=== PATIENT | female | born 1990 | race African-American/Black ===

== ENCOUNTER 2018-05-29 20:18 | Emergency (ER) | payer OTHER ==
[~2018-05-29] VITALS: Ht 160 cm; Wt 54.4 kg
[2018-05-29] MEDS ORDERED: TESSALON PERLE100 MG PO (21:11)
[2018-05-29 21:14] VITALS: BP 109/76
== END 2018-05-29 21:15 | disposition home or self-care (01) ==
LOC: ER 20:18
DX: J04.0 Acute laryngitis (principal); B34.9 Viral infection, unspecified

== ENCOUNTER 2019-05-30 09:22 | Emergency (ER) | payer OTHER ==
[~2019-05-30] VITALS: Ht 157.5 cm; Wt 56.7 kg
[~2019-05-30 09:22] MED LIST: TESSALON PERLE100 MG PO
[2019-05-30] MEDS ORDERED: GUAIFEN-CODEINE10 ML PO (10:20)
[2019-05-30 10:41] VITALS: BP 97/59
== END 2019-05-30 10:41 | disposition home or self-care (01) ==
LOC: ER 09:22
DX: J06.9 Acute upper respiratory infection, unspecified (principal); L02.31 Cutaneous abscess of buttock

== ENCOUNTER 2019-06-11 07:30 | Emergency (ER) | payer OTHER ==
[~2019-06-11] VITALS: Ht 157.5 cm; Wt 56.7 kg
[~2019-06-11 07:30] MED LIST changes: +GUAIFEN-CODEINE10 ML PO
[2019-06-11] MEDS ORDERED: NOHOMEMEDICATIONS (08:26)
[2019-06-11 08:31] LABS: URINE BILIRUBIN NEGATIVE (Negative); URINE BLOOD 3+ (Negative); URINE CLARITY CLOUDY; URINE COLOR YELLOW; URINE GLUCOSE-RANDOM* NEGATIVE (Negative); URINE KETONES NEGATIVE (Negative); URINE LEUKOCYTES-REFLEX 2+ (Negative); URINE NITRITE-REFLEX NEGATIVE (Negative); URINE PROTEIN (DIPSTICK) 2+ (Negative); URINE SPECIFIC GRAVITY 1.025 (1.005-1.035); URINE UROBILINOGEN 0.2 E.U./dl (0.2-1.0)
[2019-06-11 08:41] LABS: CASTS None Seen /LPF (None Seen); CRYSTALS None Seen /LPF (None Seen); SQUAMOUS >10 Many /LPF (0-3); URINE RBC >20 Many /HPF (0-2)
[2019-06-11 08:43] LABS: URINE WBC-REFLEX >25 Many /HPF (0-5)
[2019-06-11] MEDS ORDERED: ZOFRAN ODT4 MG PO (08:51)
[2019-06-11] MEDS ORDERED: KEFLEX500 M1 PO (08:51)
[2019-06-11 09:02] VITALS: BP 99/62
== END 2019-06-11 09:03 | disposition home or self-care (01) ==
LOC: ER 07:30
PROVIDERS: Emergency Medicine
DX: N39.0 Urinary tract infection, site not specified (principal)

== ENCOUNTER 2019-09-24 22:43 | Emergency (ER) | payer OTHER ==
[~2019-09-24] VITALS: Ht 160 cm; Wt 54.4 kg
[~2019-09-24 22:43] MED LIST changes: +KEFLEX500 M1 PO; +NOHOMEMEDICATIONS; +ZOFRAN ODT4 MG PO
[2019-09-24 22:49] VITALS: BP 97/63
[2019-09-24] MEDS ORDERED: ERYTHROMYCIN E3.5 G2 OPHTHALMIC (23:10)
== END 2019-09-24 23:35 | disposition home or self-care (01) ==
LOC: ER 22:43
DX: H15.001 Unspecified scleritis, right eye (principal); H15.101 Unspecified episcleritis, right eye; H10.9 Unspecified conjunctivitis

== ENCOUNTER 2019-10-27 12:40 | Emergency (ER) | payer OTHER ==
[~2019-10-27] VITALS: Ht 160 cm; Wt 49.9 kg
[~2019-10-27 12:40] MED LIST changes: +ERYTHROMYCIN E3.5 G2 OPHTHALMIC
[2019-10-27 13:15] LABS: URINE BILIRUBIN NEGATIVE (Negative); URINE BLOOD 3+ (Negative); URINE GLUCOSE-RANDOM* NEGATIVE (Negative); URINE KETONES TRACE (Negative); URINE LEUKOCYTES-REFLEX NEGATIVE (Negative); URINE NITRITE-REFLEX NEGATIVE (Negative); URINE PROTEIN (DIPSTICK) 1+ (Negative); URINE SPECIFIC GRAVITY >= 1.030 (1.005-1.035); URINE UROBILINOGEN 0.2 E.U./dl (0.2-1.0)
[2019-10-27 13:16] LABS: URINE CLARITY CLOUDY; URINE COLOR RED
[2019-10-27 13:21] LABS: CASTS None Seen /LPF (None Seen); SQUAMOUS 0-3 Few /LPF (0-3)
[2019-10-27 13:22] LABS: BACTERIA-REFLEX None Seen /HPF (None Seen); CRYSTALS None Seen /LPF (None Seen); URINE RBC >20 Many /HPF (0-2)
[2019-10-27 13:25] LABS: URINE WBC-REFLEX 6-15 Few /HPF (0-5)
[2019-10-27] MEDS ORDERED: PRENATAL PO (13:34)
[2019-10-27 13:35] LABS: ABSOLUTE NEUTROPHILS 4.5 thou/uL (1.4-8.2); BASOPHILS 0.6 % (0.0-2.0); EOSINOPHILS 2.3 % (0.0-3.0); HEMATOCRIT 38.7 % (37.0-47.0); HEMOGLOBIN 12.7 gm/dL (12.0-15.0); LYMPHOCYTES 18.4 % (24.0-44.0); MCH 26.9 pg (26.0-34.0); MCHC 32.9 g/dL (28.0-37.0); MCV 81.7 fL (80.0-100.0); MONOCYTES 11.1 % (1.0-8.0); PLATELET COUNT 245 thou/uL (150-400); POLYS 67.6 % (36.0-66.0); RBC 4.74 mil/uL (4.20-5.00); RDW 15.2 % (10.5-14.5); WBC 6.7 thou/uL (4.0-11.0)
[2019-10-27 13:42] LABS: CALCIUM 8.7 mg/dL (8.5-10.1); CREATININE 0.8 mg/dL (0.6-1.0); POTASSIUM 3.7 mmol/L (3.5-5.1)
[2019-10-27 13:49] LABS: TOTAL BILIRUBIN 0.5 mg/dL (0.2-1.0); TOTAL PROTEIN 7.5 g/dL (6.4-8.2)
[2019-10-27] MEDS ORDERED: MACROBID 100 M100 MG PO (13:57)
[2019-10-27] MEDS ORDERED: TORADOL 10 MG T10 MG PO (13:57)
[2019-10-27] MEDS ORDERED: ONDANSETRON HCL4 M2 PO (13:59)
[2019-10-27 14:20] VITALS: BP 102/67
== END 2019-10-27 15:04 | disposition home or self-care (01) ==
LOC: ER 12:40
PROVIDERS: Physician Assistant
DX: N39.0 Urinary tract infection, site not specified (principal); N94.6 Dysmenorrhea, unspecified; Z79.899 Other long term (current) drug therapy

== ENCOUNTER 2020-03-29 07:55 | Emergency (ER) | payer OTHER ==
[~2020-03-29] VITALS: Ht 160 cm; Wt 55.3 kg
[~2020-03-29 07:55] MED LIST changes: +MACROBID 100 M100 MG PO; +ONDANSETRON HCL4 M2 PO; +PRENATAL PO; +TORADOL 10 MG T10 MG PO
[2020-03-29 07:56] VITALS: BP 99/58
[2020-03-29 08:17] LABS: URINE BILIRUBIN NEGATIVE (Negative); URINE BLOOD 3+ (Negative); URINE COLOR YELLOW; URINE GLUCOSE-RANDOM* NEGATIVE (Negative); URINE KETONES NEGATIVE (Negative); URINE LEUKOCYTES-REFLEX NEGATIVE (Negative); URINE NITRITE-REFLEX NEGATIVE (Negative); URINE PROTEIN (DIPSTICK) 1+ (Negative); URINE UROBILINOGEN 0.2 E.U./dl (0.2-1.0)
[2020-03-29 08:19] LABS: URINE CLARITY CLOUDY
[2020-03-29 08:23] LABS: BACTERIA-REFLEX >30 Many /HPF (None Seen); SQUAMOUS >10 Many /LPF (0-3); URINE WBC-REFLEX 0-5 Rare /HPF (0-5)
[2020-03-29 08:24] LABS: CASTS None Seen /LPF (None Seen); CRYSTALS None Seen /LPF (None Seen)
[2020-03-29 08:44] LABS: ABSOLUTE NEUTROPHILS 4.2 thou/uL (1.4-8.2); BASOPHILS 0.7 % (0.0-2.0); EOSINOPHILS 4.3 % (0.0-3.0); HEMOGLOBIN 13.1 gm/dL (12.0-15.0); LYMPHOCYTES 25.1 % (24.0-44.0); MCH 26.9 pg (26.0-34.0); MCHC 32.6 g/dL (28.0-37.0); MCV 82.3 fL (80.0-100.0); MONOCYTES 9.5 % (1.0-8.0); PLATELET COUNT 279 thou/uL (150-400); POLYS 60.4 % (36.0-66.0); RBC 4.86 mil/uL (4.20-5.00); RDW 15.7 % (10.5-14.5)
[2020-03-29 08:50] LABS: CREATININE 0.7 mg/dL (0.6-1.0); POTASSIUM 3.4 mmol/L (3.5-5.1)
[2020-03-29 08:57] LABS: TOTAL BILIRUBIN 0.6 mg/dL (0.2-1.0); TOTAL PROTEIN 7.7 g/dL (6.4-8.2)
[2020-03-29] MEDS ORDERED: MACROBID 100 M100 MG PO (10:03)
== END 2020-03-29 10:12 | disposition home or self-care (01) ==
LOC: ER 07:55
PROVIDERS: Emergency Medicine
DX: O20.8 Other hemorrhage in early pregnancy (principal); Z79.899 Other long term (current) drug therapy; Z3A.01 Less than 8 weeks gestation of pregnancy

== ENCOUNTER 2020-03-31 22:33 | Emergency (ER) | payer OTHER ==
[~2020-03-31] VITALS: Ht 160 cm; Wt 54.4 kg
[2020-03-31 23:07] LABS: HEMATOCRIT 35.7 % (37.0-47.0); HEMOGLOBIN 12.1 gm/dL (12.0-15.0); MCH 27.6 pg (26.0-34.0); MCHC 33.8 g/dL (28.0-37.0); MCV 81.6 fL (80.0-100.0); RBC 4.37 mil/uL (4.20-5.00); RDW 15.3 % (10.5-14.5); WBC 9.3 thou/uL (4.0-11.0)
[2020-04-01] MEDS ORDERED: APAP W/CODEINE1 TA2 PO (00:18)
[2020-04-01 00:43] VITALS: BP 107/65
== END 2020-04-01 00:56 | disposition home or self-care (01) ==
LOC: ER 22:33
PROVIDERS: Emergency Medicine
DX: O03.4 Incomplete spontaneous abortion without complication (principal); Z79.899 Other long term (current) drug therapy; Z3A.01 Less than 8 weeks gestation of pregnancy

== ENCOUNTER → 2020-04-01 | Outpatient (CLI) | payer OTHER ==
[~2020-04-01] MED LIST changes: +APAP W/CODEINE1 TA2 PO
== END ==
LOC: LABMALL 17:46
PROVIDERS: ATTEND Obstetrics & Gynecology
DX: O02.1 Missed abortion (principal)